=== PATIENT | male | born 1960 | race Caucasian/White ===

== ENCOUNTER 2016-08-15 17:42 | Emergency (ER) | payer OTHER ==
[~2016-08-15] VITALS: Ht 176.5 cm; Wt 77.8 kg
[2016-08-15 17:45] VITALS: BP 137/83; PULSE 82; RESP 16; O2SAT 99
--- NOTE | 2016-08-15 19:35 | DRSVH ---
PROCEDURE: X-RAY CHEST ONE VIEW, PORTABLE ([id number]) INDICATIONS: CHEST PAIN TECHNIQUE: One view of the chest was acquired. COMPARISON: None. FINDINGS: Surgical changes and devices: None. Lungs and pleura: No pleural effusions or pneumothorax. Lungs are clear. Mediastinum: Mediastinal contours appear normal. Heart size is normal. Bones and chest wall: No suspicious bony lesions. Overlying soft tissues appear unremarkable. IMPRESSION: No acute cardiopulmonary findings. Dictated by: Noreen Casarez M.D. on 08/15/2016 at 19:33 Approved by: Noreen Casarez M.D. on 08/15/2016 at 19:34
[2016-08-15 19:39] LABS: BASOPHILS % (AUTO) 0.4 % (0-3); EOSINOPHILS % (AUTO) 1.9 % (0-5); Mean Corpuscular Volume 90.7 fL (81-100); NEUTROPHILS % (AUTO) 66.5 % (40-74); Platelet Count 217 bil/L (150-400)
--- NOTE | 2016-08-15 19:57 | ED.REPORT ---
HPI-General Illness Date of Service Aug 15, 2016 ED Provider: Gaetano Renteria PA-C Babatunde is a 56-year-old male presents with chief complaint of lightheadedness. He states that over the last 7-10 days s computer is a sensation of lightheadedness in the sense that he might be about to pass out. He has not lost consciousness. 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 He started taking aspirin. 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 He admits to occasional sense of "fullness" in his chest but denies chest pressure or chest pain. He reports that he sometimes feels like he becomes more winded than he should with exercise, but denies shortness of breath, dyspnea, wheezing, cough. Reports feeling more bloated with eating, but denies abdominal pain, bowel changes, black/tarry stool, hematochezia, vomiting. Also complains of episodes of difficulty swallowing, minor muscle twitching, low-grade headache occasionally, reduced visual acuity, ear fullness, jaw and neck pain which is at baseline. He presents a paper titled "health observations and symptoms "outlining his concerns. Denies weakness/numbness in his limbs. Denies history of DVT/PE, denies recent trauma or surgery, hemoptysis, exogenous estrogen, leg swelling. Nursing Notes Stated Complaint: SYMPTOM ANALYSIS SENT FROM Chief Complaint: General Complaint Nursing Notes Reviewed: Yes Allergies: Coded Allergies: Tetanus Vaccines and Toxoid (Verified Adverse Reaction, Intermediate, LOCALIZED SWELLING/REDNESS 20 YEARS AGO, 08/15/16) No Active Prescriptions or Reported Meds General Time Seen by MD: 19:18 Chief Complaint Other (lightheadedness) Past Medical History Past Medical History Neck pain Anxiety Review of Systems General: Denies fever, chills, malaise. HEENT: Denies congestion, headache, sore throat. Respiratory: Denies dyspnea, cough, shortness of breath, wheezing. Cardiovascular: Denies chest pain, palpitations. Gastrointestinal: Denies vomiting, diarrhea, abdominal pain. Genitourinary: Denies frequency, urgency, dysuria, hematuria. Otherwise as noted in HPI. Physical Exam General: Well appearing, well developed, well nourished, no acute distress. Head: Atraumatic, normocephalic. No mastoid tenderness. Eyes: No scleral icterus or injection. No discharge. PERRL. Vision grossly intact. Ears: Pinna and tragus nontender with manipulation. External auditory canal patent, atraumatic and without discharge. Tympanic membrane galindo, shiny and translucent without fluid, bulging, retraction or perforation. Hearing grossly intact. Nose: Symmetrical, nares patent without discharge. No frontal or maxillary sinus tenderness. Mouth/pharynx: normal dentition, mucus membranes moist. Tonsils 2+ and symmetrical, uvula midline. Pharynx noninjected, no cobblestoning or discharge. Voice clear. Neck: No tenderness or lymphadenopathy. Trachea midline. Respiratory: Regular rate and rhythm. Breath sounds present, clear to auscultation and equal bilaterally. No respiratory distress. No increased work of breathing, speaks in complete sentences. Cardiovascular: Regular rate and rhythm, without murmur, gallop or rub. No pedal edema. Distal pulses 2+ in all limbs. Gastrointestinal: Abdomen flat and non-tender without guarding or rebound. Bowel sounds normoactive. Skin: Warm and dry. Neurological: Normal rapid hand, heel kelly. Sensation and strength grossly intact in upper extremities. Cranial nerves: Vision grossly intact, PERRL, EOMI. Facial motion symmetrical, sensation to light touch over forehead, maxilla and mandible present and equal B /L. Voice clear and fluent, no drooling/pooling of saliva, uvula rises midline. Psychological: Alert and oriented. Speech appropriate, linear and logical. Moderately anxious. Vital Signs Vital Signs Date Time Temp Pulse Resp B/P Pulse Ox O2 Delivery O2 Flow Rate FiO2 08/15/16 21:05 98 18 148/84 98 Room Air 08/15/16 17:45 36.5 82 16 137/83 99 Room Air Initial VS: Reviewed, Vital signs normal Interpretation & Diagnostics Lab Results Interpretation Result Diagram: 08/15/16191408/15/161914 Test 08/15/16 18:10 08/15/16 19:15 Hold Urine Received (Received) White Blood Count 5.7th/mm3 (3.8-10.1) Red Blood Count 4.93mil/mm3 (4.40-5.80) Hemoglobin 15.8g/dL (13.8-17.2) Hematocrit 44.7% (41.0-50.0) Mean Corpuscular Volume 90.7fL (81-100) Mean Corpuscular Hemoglobin 32.0pg (27.0-35.0) Mean Corpuscular Hemoglobin Concent 35.3% (32.0-37.0) Red Cell Distribution Width 11.6% (12.3-15.4) Platelet Count 217bil/L (150-400) Neutrophils (%) (Auto) 66.5% (40-74) Lymphocytes (%) (Auto) 23.8% (14-46) Monocytes (%) (Auto) 7.0% (4-12) Eosinophils (%) (Auto) 1.9% (0-5) Basophils (%) (Auto) 0.4% (0-3) Sodium Level 139mEq/L (134-144) Potassium Level 3.9mEq/L (3.5-5.2) Chloride Level 99mEq/L (97-108) Carbon Dioxide Level 24mmol/L (18-29) Blood Urea Nitrogen 12mg/dL (6-24) Creatinine 0.73mg/dL (0.76-1.27) Estimat Glomerular Filtration Rate 118mL/min (>59) Glucose Level 92mg/dL (60-99) Calcium Level 9.6mg/dL (8.5-10.1) Magnesium Level 2.1mg/dL (1.6-2.6) Total Bilirubin 0.6mg/dL (0.0-1.2) Aspartate Amino Transf (AST/SGOT) 20U/L (0-50) Alanine Aminotransferase (ALT/SGPT) 19U/L (0-44) Alkaline Phosphatase 58U/L (25-150) Troponin T < 0.010ug/L (0.0-0.011) Total Protein 7.9g/dL (6.4-8.4) Albumin 5.5g/dL (3.4-5.0) Hold Riley Top Tube Received (Received) X-Ray Chest Interpretation Chest Xray Interpretation: PROCEDURE: X-RAY CHEST ONE VIEW, PORTABLE ([id number]) INDICATIONS: CHEST PAIN IMPRESSION: No acute cardiopulmonary findings. Interpretation / Wet Read by: Interpret - Radiologist Re-Eval/Medical Decision Med Decision/Clinical Course 56-year-old male with many somewhat vague complaints. Reports over the last week or 2 he has had increased episodes of lightheaded dizziness, suggestive of presyncope while "working hard" at his computer. 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 He denies losing consciousness. He was seen in urgent care, where they performed an EKG. They described that EKG as "low voltage" and are concerned about a pericardial effusion. Physical examination is benign. EKG is normal. Chest x-ray is normal. The CBC and CMP are normal troponin is negative. PERC negative. Ultrasound of the heart reveals no pericardial effusion. At this point I do not suspect GA, ACS, arrhythmia, pericardial effusion, pneumonia, PE, stroke. There is no indication of anemia, electrolyte imbalance , infection, sepsis, GI bleeding. I think there is a chance his symptoms can be treated to stress or anxiety. Question of illness anxiety disorder. I believe he is stable and safe for discharge to home. High blood pressure is noted during this visit. Discussed this with the patient and advised follow-up with her primary care physician. Provided primary care follow-up referral. Provided emergency return precautions. Discussed findings extensively with family and patient understand and agree with the plan. I discussed this case with Dr. Lopez with and examined the patient, as well as performing ultrasound.. Discharge & Departure Primary Impression: Elevated blood pressure (not hypertension) Disposition: Home Discharge Condition All VS Reviewed: Yes Condition: Stable Additional Instructions: Evaluation in the emergency department for lightheadedness. History, physical, EKG, chest x-ray, ultrasound and blood work are all reassuring that this is unlikely to be a cardiac event, arrhythmia, pericardial effusion, blood clot in your lungs, pneumonia, collapsed lung, anemia, hypoglycemia, stroke. There is no indication of infection in your body. I believe we have eliminated dangerous causes. While I cannot say definitively why you are experiencing your symptoms, I believe you are stable and safe to be discharged to home. I will provide you with a referral for a primary care physician. Please contact them to establish care and further investigate your symptoms. Incidentally, we noted that your blood pressure was slightly elevated during her visit today. A single incidence of elevated blood pressure, especially in the emergency department, does not necessarily indicate hypertension. However this should be addressed with your primary care physician and monitored. Return to emergency department for any new or worsening symptoms including pain in your chest, difficulty breathing. Referrals: Wendy Arredondo PA-C EDSupervising Provider for APC: Steven Lopez MD Attending Statement Attending attestation: I saw this patient in conjunction with Gaetano Renteria PA-C. I was present for albrecht portions of the history taking and physical examination. I agree with the workup, evaluation, treatment and disposition. Steven Lopez MD copies to: Wendy Arredondo PA-C, Seth PA-C Aug 15, 2016 19:57 Steven Lopez MD Aug 16, 2016 01:26
[2016-08-15 20:04] LABS: TROPONIN T < 0.010 ug/L (0.0-0.011)
[2016-08-15 20:11] LABS: Magnesium 2.1 mg/dL (1.6-2.6)
[2016-08-15 21:05] VITALS: BP 148/84; PULSE 98; RESP 18; O2SAT 98
== END 2016-08-15 21:07 | disposition home or self-care (01) ==
LOC: SED 17:42
DX: R03.0 Elevated blood-pressure reading, without diagnosis of hypertension (principal); F41.9 Anxiety disorder, unspecified; F43.9 Reaction to severe stress, unspecified; R13.10 Dysphagia, unspecified; R25.3 Fasciculation; R51 Headache; R68.84 Jaw pain; M54.2 Cervicalgia

== ENCOUNTER → 2017-02-03 | Day surgery (SDC) | payer OTHER ==
[~2017-02-03] VITALS: Ht 177.8 cm; Wt 75.8 kg
[~2017-02-03] MED LIST: 0.9% Sodium Chloride 1,000 ML IV SCH; Sodium Chloride LOK Flush 10 mL Syringe IV PRN; TEMA15CA3 PO; ZIT250 PO; fentaNYL-PF 50 mCg/mL 2 mL Inj IVPUSH PRN
[2017-02-03 10:26] VITALS: BP 122/67; PULSE 64; RESP 16; O2SAT 100
[2017-02-03 11:58] VITALS: BP 107/54; PULSE 70; RESP 16; O2SAT 100
[2017-02-03 12:10] VITALS: BP 119/60; PULSE 68; RESP 16; O2SAT 97
[2017-02-03 12:20] VITALS: BP 117/68; PULSE 71; RESP 15; O2SAT 97
--- NOTE | 2017-02-03 14:20 | ENDO ---
[address] [address] ENDOSCOPY PROCEDURE PATIENT: FAHEEM BRISCOE : 1960 MR#: [id number] ADMIT: 02/03/2017 JOB ID: [id number] DATE OF SERVICE: 02/03/2017 TYPE OF OPERATION: Colonoscopy. PREOPERATIVE DIAGNOSIS(ES): Colorectal cancer screening. POSTOPERATIVE DIAGNOSIS(ES): Small internal hemorrhoids. ANESTHESIA: Fentanyl 100 mcg, Versed 5 mg IV administered. COMPLICATIONS: None. ESTIMATED BLOOD LOSS: Minimal. DESCRIPTION OF PROCEDURE: After risks and benefits explained to the patient, informed consent was obtained. After anesthesia administered, colonoscope was then inserted from the rectum to the cecum, and mucosa carefully examined. Prep of the patient was fair. After the procedure was done, the scope was withdrawn and procedure terminated. FINDINGS: Upon inspection of the anus, no masses, hemorrhoids, ulcers, or fissures that were seen. Throughout the entire examination, there were no polyps or mass lesions. Retroflexion showed small internal hemorrhoids. IMPRESSION: Small internal hemorrhoids. RECOMMENDATIONS: Stool softener as needed. Repeat colonoscopy in 10 years for colorectal cancer screening.
== END | disposition home or self-care (01) ==
LOC: END 00:57
PROVIDERS: ATTEND Internal Medicine Gastroenterology
DX: Z12.11 Encounter for screening for malignant neoplasm of colon (principal); K64.8 Other hemorrhoids; M19.90 Unspecified osteoarthritis, unspecified site; F41.9 Anxiety disorder, unspecified
CPT/HCPCS: G0121; G0500; J2250; J3010; J7030